=== PATIENT | male | born 1940 | race Caucasian/White ===

== ENCOUNTER 2021-04-21 16:49 | Emergency (ER) | payer OTHER, BC ==
[~2021-04-21] VITALS: Ht 180.3 cm; Wt 100.0 kg
[2021-04-21 17:31] LABS: URINE BILIRUBIN - DIPSTICK NEGATIVE (NEGATIVE); URINE BLOOD DIPSTICK NEGATIVE (NEGATIVE); URINE COLOR YELLOW; URINE GLUCOSE - DIPSTICK NEGATIVE (NEGATIVE); URINE KETONE NEGATIVE (NEGATIVE); URINE LEUK ESTERASE NEGATIVE (NEGATIVE); URINE PROTEIN - DIPSTICK NEGATIVE (NEG-TRACE); URINE UROBILINOGEN - DIPSTICK 0.2 E.U./dL (0.2)
[2021-04-21 17:34] LABS: URINE NITRITE - DIPSTICK NEGATIVE (Negative)
[2021-04-21 17:36] LABS: HEMATOCRIT 24.5 % (39.0-50.0); HEMOGLOBIN 7.6 g/dl (14.0-18.0); IMMATURE GRANULOCYTES 0.3 % (0.0-5.0); MEAN CELL VOLUME 102.5 fL CALC (80.0-100.0); MEAN CORPUSCULAR HGB 31.8 pG CALC (26.0-32.0); NEUT# 5.18 thou/uL (1.82-7.42); RED BLOOD COUNT 2.39 mill/uL (4.70-6.10); RED CELL DISTRI WIDTH 12.9 % (11.5-15.5)
[2021-04-21 17:51] LABS: ACT PARTIAL THROMBO TIME 39.4 SECONDS (20.0-32.5); ALBUMIN 2.9 g/dL (3.2-5.0); ALKALINE PHOSPHATASE 140 u/l (38-126); ANION GAP 11 (6-22 (CALC)); BILIRUBIN, TOTAL 0.2 mg/dL (0.0-1.4); BUN 47 mg/dL (8-23); BUN/CREATININE RATIO 51 (12-20 (CALC)); CARBON DIOXIDE 26 mmol/l (22-30); CHLORIDE 104 mmol/l (95-108); CREATININE 0.9 mg/dL (0.7-1.3); GFR > 60 ML/MIN (>=60 (CALC)); GFR FOR AFR.AMER. > 60 ML/MIN (>=60 (CALC)); INTERNATIONAL NORMALIZED RATIO 3.7 RATIO (0.7-1.3); LIPASE 84 u/l (23-300); PROTHROMBIN TIME 35.9 SECONDS (9.0-12.5); SGOT/AST 74 u/l (19-48); SODIUM 136 mmol/l (137-146); TOTAL PROTEIN 5.7 g/dL (6.3-8.2)
[2021-04-21 17:58] LABS: POTASSIUM 5.4 mmol/l (3.5-5.1)
[2021-04-21 18:17] VITALS: BP 108/63
[2021-04-21 18:28] VITALS: BP 106/65
[2021-04-21 18:36] VITALS: BP 104/56
[2021-04-21 18:45] VITALS: BP 104/56
== END 2021-04-21 18:45 | disposition short-term general hospital (02) | DRG 379 ==
LOC: ED 16:49
PROC: 30233N1 Transfusion of Nonautologous Red Blood Cells into Peripheral Vein, Percutaneous Approach (ICD-10-PCS; principal; 2021-04-21)
DX: K92.1 Melena (principal); D64.9 Anemia, unspecified; Z79.01 Long term (current) use of anticoagulants
CPT/HCPCS: P9016; S0164